=== PATIENT | female | born 1965 | race African-American/Black ===

== ENCOUNTER 2018-01-06 17:07 | Emergency (ER) | payer SELFPAY ==
[~2018-01-06] VITALS: Ht 157.5 cm; Wt 73.0 kg
[2018-01-06 17:11] VITALS: BP 137/76
== END 2018-01-07 01:00 | disposition left against medical advice (07) ==
LOC: ER 17:25
DX: Z53.21 Procedure and treatment not carried out due to patient leaving prior to being seen by health care provider (principal)

== ENCOUNTER 2018-11-01 14:25 | Inpatient (IN) | payer MEDICAID ==
[~2018-11-01] VITALS: Ht 147.3 cm; Wt 84.8 kg
[2018-11-01] MEDS ORDERED: SODIUM CHLORIDE 0.9% 1000ML BAG (SEPSIS BOLUS) IV ONE (14:45)
[2018-11-01] MEDS ORDERED: ONDANSETRON HCL 4MG/2ML INJ IV ONE (15:00)
[2018-11-01] MEDS ORDERED: MORPHINE SULFATE 4 MG/ML CPJ (NOT FOR IM USE) IV ONE (15:00)
[2018-11-01 15:29] LABS: BASOPHILS % 0.6 % (0.0-2.0); EOSINOPHILS % 0.9 % (0.0-5.0); HEMATOCRIT. 45.8 % (36.0-48.0); HEMOGLOBIN. 15.1 g/dL (12.0-16.0); MEAN CORPUSCULAR HEMOGLOBIN 27.6 pg (28.0-32.0); MEAN CORPUSCULAR VOLUME 83.7 fL (81.0-99.0); MEAN PLATELET VOLUME 10.6 fl (7.4-10.4); MONOCYTES % 5.8 % (2.0-8.0); NEUTROPHILS % 67.7 % (40.0-76.0); PLATELET 234 x1000/uL (130-400); RED BLOOD CELL COUNT 5.47 mill/uL (4.2-5.4); RED CELL DISTRIBUTION WIDTH 15.7 % (11.6-14.6)
[2018-11-01 15:31] LABS: INR 1.1; PROTHROMBIN TIME 11.1 sec (9.6-11.0)
[2018-11-01 15:32] LABS: CHLORIDE 89 mEq/L (98-107)
[2018-11-01 16:55] LABS: CLARITY URINE CLEAR (CLEAR); COLOR URINE YELLOW (YELLOW); KETONES URINE 4+ (NEGATIVE); LEUKOCYTE ESTERASE URINE NEGATIVE (NEGATIVE); NITRITE URINE NEGATIVE (NEGATIVE); OCCULT BLOOD URINE NEGATIVE (NEGATIVE); PROTEIN URINE NEGATIVE (NEGATIVE); SPECIFIC GRAVITY URINE 1.034 (1.005-1.030)
[2018-11-01] MEDS ORDERED: ACETAMINOPHEN 325MG TABLET PO PRN (19:45)
[2018-11-01] MEDS ORDERED: HYDROCODONE/ACETAMINOPHEN 5/325MG TABLET PO PRN (19:45)
[2018-11-01] MEDS ORDERED: ZOLPIDEM TARTRATE 5MG TABLET PO PRN (19:45)
[2018-11-01] MEDS ORDERED: CLONIDINE 0.1MG TABLET PO PRN (19:45)
[2018-11-01] MEDS ORDERED: MORPHINE SULFATE 4 MG/ML CPJ (NOT FOR IM USE) IV PRN (19:45)
[2018-11-01] MEDS ORDERED: LABETALOL 5MG/ML SYR 20 MG/4 ML SYRINGE IV NR (19:45)
[2018-11-01] MEDS ORDERED: DEXTROSE 50% WATER 50ML SYRINGE IV PRN (20:00)
[2018-11-01] MEDS ORDERED: HYDRALAZINE 20MG/ML VIAL IV NR (20:00)
[2018-11-01] MEDS: SODIUM CHLORIDE 0.9% 1,000 ML IV SCH (20:00)
[2018-11-01] MEDS ORDERED: METOPROLOL TARTRATE 50MG TABLET PO SCH (21:00)
[2018-11-01] MEDS ORDERED: AMLODIPINE 5MG TABLET PO SCH (21:00)
[2018-11-01] MEDS: INSULIN LISPRO 100 UNITS/ML SUBCUT SCH (21:00)
[2018-11-01 21:21] LABS: *BENZODIAZEPINES SCREEN URINE NEGATIVE (NEGATIVE)
[2018-11-01 21:22] LABS: *AMPHETAMINES SCREEN URINE NEGATIVE (NEGATIVE); *COCAINE SCREEN URINE NEGATIVE (NEGATIVE); CANNABINOID URINE SCREEN PRESUMTIVE POSITIVE (NEGATIVE); METHADONE URINE SCREEN NEGATIVE (NEGATIVE); OPIATES URINE SCREEN PRESUMTIVE POSITIVE (NEGATIVE); PHENCYCLIDINE URINE SCREEN NEGATIVE (NEGATIVE)
[2018-11-01 21:23] LABS: *BARBITURATES SCREEN URINE NEGATIVE (NEGATIVE)
[2018-11-01] MEDS: INSULIN GLARGINE UD 100 UNITS/ML SYR SUBCUT SCH (22:12)
[2018-11-01 23:00] VITALS: BP 161/111
[2018-11-01] MEDS: ONDANSETRON HCL 4MG/2ML INJ IV PRN (23:56)
[2018-11-02] VITALS (7 sets, daily range): BP systolic 94–187; BP diastolic 53–114
[2018-11-02] MEDS: HYDRALAZINE 20MG/ML VIAL IV PRN ×2 (00:03→05:51)
[2018-11-02] MEDS: SODIUM CHLORIDE 0.9% 1,000 ML IV SCH ×2 (00:17→18:07)
[2018-11-02] MEDS: ONDANSETRON HCL 4MG/2ML INJ IV PRN (05:51)
[2018-11-02 06:06] LABS: BASOPHILS % 0.8 % (0.0-2.0); HEMATOCRIT. 42.5 % (36.0-48.0); HEMOGLOBIN. 13.9 g/dL (12.0-16.0); LYMPHOCYTES % 14.4 % (20.0-50.0); MEAN CORPUSCULAR HEMOGLOBIN 27.7 pg (28.0-32.0); MEAN CORPUSCULAR VOLUME 84.5 fL (81.0-99.0); MEAN PLATELET VOLUME 10.5 fl (7.4-10.4); MONOCYTES % 3.3 % (2.0-8.0); NEUTROPHILS % 81.5 % (40.0-76.0); PLATELET 201 x1000/uL (130-400); RED BLOOD CELL COUNT 5.02 mill/uL (4.2-5.4); RED CELL DISTRIBUTION WIDTH 15.6 % (11.6-14.6)
[2018-11-02 06:46] LABS: CHLORIDE 103 mEq/L (98-107)
[2018-11-02] MEDS: INSULIN LISPRO 100 UNITS/ML SUBCUT SCH ×6 (07:15→22:21)
[2018-11-02] MEDS: BLOOD SUGAR DIAGNOSTIC STRIP TEST SCH ×4 (07:32→21:00)
[2018-11-02] MEDS: METOCLOPRAMIDE HCL 10MG/2ML VIAL IV SCH ×2 (12:22→18:03)
[2018-11-02] MEDS: NICOTINE 14MG PATCH TD SCH (12:24)
[2018-11-02] MEDS: INSULIN GLARGINE UD 100 UNITS/ML SYR SUBCUT SCH (12:26)
[2018-11-02] MEDS: CLONIDINE 0.2MG TABLET PO SCH ×2 (13:38→22:00)
[2018-11-02] MEDS: HYDRALAZINE HCL 100MG TABLET PO SCH ×2 (13:39→22:00)
[2018-11-02] MEDS: DILTIAZEM HCL 90MG TABLET PO SCH ×2 (13:40→22:00)
[2018-11-02] MEDS ORDERED: CLONIDINE 0.1MG TABLET PO SCH (14:00)
[2018-11-02] MEDS ORDERED: DIATR MEGLU/DIATRIZOATE SOLN 30ML PO SCH (15:15)
[2018-11-02] MEDS: PANTOPRAZOLE SODIUM 40 MG/VIAL IV SCH (18:02)
[2018-11-02] MEDS: CARVEDILOL 25MG TABLET PO SCH (21:00)
[2018-11-03] VITALS: BP 92/62
[2018-11-03] MEDS: METOCLOPRAMIDE HCL 10MG/2ML VIAL IV SCH ×3 (00:11→12:00)
[2018-11-03] MEDS: INSULIN GLARGINE UD 100 UNITS/ML SYR SUBCUT SCH ×2 (00:12→10:51)
[2018-11-03 04:00] VITALS: BP 93/60
[2018-11-03] MEDS: HYDRALAZINE HCL 100MG TABLET PO SCH (06:00)
[2018-11-03] MEDS: CLONIDINE 0.2MG TABLET PO SCH (06:00)
[2018-11-03] MEDS: DILTIAZEM HCL 90MG TABLET PO SCH (06:00)
[2018-11-03] MEDS: BLOOD SUGAR DIAGNOSTIC STRIP TEST SCH ×2 (06:57→11:45)
[2018-11-03] MEDS: INSULIN LISPRO 100 UNITS/ML SUBCUT SCH ×4 (06:58→12:15)
[2018-11-03 07:20] LABS: BASOPHILS % 0.2 % (0.0-2.0); EOSINOPHILS % 1.4 % (0.0-5.0); HEMATOCRIT. 36.6 % (36.0-48.0); HEMOGLOBIN. 11.7 g/dL (12.0-16.0); MEAN CORPUSCULAR HEMOGLOBIN 26.9 pg (28.0-32.0); MEAN CORPUSCULAR VOLUME 83.9 fL (81.0-99.0); MEAN PLATELET VOLUME 10.7 fl (7.4-10.4); MONOCYTES % 4.3 % (2.0-8.0); NEUTROPHILS % 56.1 % (40.0-76.0); PLATELET 158 x1000/uL (130-400); RED BLOOD CELL COUNT 4.36 mill/uL (4.2-5.4); RED CELL DISTRIBUTION WIDTH 15.5 % (11.6-14.6)
[2018-11-03 07:52] LABS: CHLORIDE 106 mEq/L (98-107)
[2018-11-03 08:00] VITALS: BP 102/63
[2018-11-03] MEDS: CARVEDILOL 25MG TABLET PO SCH (09:00)
[2018-11-03] MEDS: PANTOPRAZOLE SODIUM 40 MG/VIAL IV SCH (09:50)
[2018-11-03] MEDS: NICOTINE 14MG PATCH TD SCH (09:50)
[2018-11-03] MEDS ORDERED: LIDOCAINE HCL 1% 20ML VIAL (Pyxis) INJ ONE (11:01)
[2018-11-03] MEDS ORDERED: DIATR MEGLU/DIATRIZOATE SOLN 30ML PO NR (12:45)
[2018-11-03] MEDS ORDERED: CLONIDINE 0.1MG TABLET PO SCH (17:00)
== END 2018-11-03 13:20 | disposition left against medical advice (07) | DRG 282 ==
LOC: ER 14:25 → 5WST 19:31 → EDBEDREQTM 19:32 → EDBEDREQ 19:32 → EDBEDREQSVC 19:32 → ENRESERV 21:20 → 5WST 11-02 05:22
PROVIDERS: ADMIT Internal Medicine; ATTEND Internal Medicine
PROC: 02HV33Z Insertion of Infusion Device into Superior Vena Cava, Percutaneous Approach (ICD-10-PCS; principal; 2018-11-03)
PROC: B518ZZA Fluoroscopy of Superior Vena Cava, Guidance (ICD-10-PCS; 2018-11-03)
DX: K85.90 Acute pancreatitis without necrosis or infection, unspecified (principal); E11.65 Type 2 diabetes mellitus with hyperglycemia; K86.2 Cyst of pancreas; I16.0 Hypertensive urgency; F17.210 Nicotine dependence, cigarettes, uncomplicated; I10 Essential (primary) hypertension; J44.9 Chronic obstructive pulmonary disease, unspecified; E66.9 Obesity, unspecified; Z71.6 Tobacco abuse counseling; Z90.49 Acquired absence of other specified parts of digestive tract
CPT/HCPCS: 36415; 36569; 36573; 74176; 80048; 80061; 80305; 82962; 83036; 83605; 84145; 84443; 84484; 86301; 93005; 93306; 93970; 99291; C1725; C1893; C9113; J0360; J1815; J2270; J2405; J2765; J3490; J7030; J7050

== ENCOUNTER 2019-08-02 18:38 | Emergency (ER) | payer MEDICAID ==
[~2019-08-02] VITALS: Ht 162.6 cm; Wt 84.0 kg
[2019-08-02] MEDS ORDERED: ONDANSETRON HCL 4MG/2ML INJ IV STA (20:31)
[2019-08-02 20:50] LABS: BASOPHILS % 0.4 % (0.0-2.0); HEMATOCRIT. 41.2 % (36.0-48.0); HEMOGLOBIN. 13.7 g/dL (12.0-16.0); LYMPHOCYTES % 21.1 % (20.0-50.0); MEAN CORPUSCULAR HEMOGLOBIN 26.5 pg (28.0-32.0); MEAN CORPUSCULAR VOLUME 79.5 fL (81.0-99.0); MEAN PLATELET VOLUME 8.5 fl (7.4-10.4); MONOCYTES % 3.9 % (2.0-8.0); NEUTROPHILS % 74.6 % (40.0-76.0); PLATELET 245 x1000/uL (130-400); RED BLOOD CELL COUNT 5.18 mill/uL (4.2-5.4); RED CELL DISTRIBUTION WIDTH 17.6 % (11.6-14.6)
[2019-08-02 20:57] LABS: CHLORIDE 103 mEq/L (98-107)
[2019-08-02] MEDS ORDERED: SODIUM CHLORIDE 0.9% 1,000 ML IV ONE (21:45)
[2019-08-03 01:23] LABS: CLARITY URINE CLEAR (CLEAR); COLOR URINE YELLOW (YELLOW); KETONES URINE 3+ (NEGATIVE); LEUKOCYTE ESTERASE URINE NEGATIVE (NEGATIVE); NITRITE URINE NEGATIVE (NEGATIVE); OCCULT BLOOD URINE NEGATIVE (NEGATIVE); PH URINE 6.5 (4.5-8.0); PROTEIN URINE 1+ (NEGATIVE); SPECIFIC GRAVITY URINE 1.023 (1.005-1.030)
[2019-08-03 03:00] VITALS: BP 166/96
== END 2019-08-03 03:30 | disposition home or self-care (01) ==
LOC: ER 18:38
DX: R11.2 Nausea with vomiting, unspecified (principal); J45.909 Unspecified asthma, uncomplicated; E11.9 Type 2 diabetes mellitus without complications; I10 Essential (primary) hypertension; Z88.6 Allergy status to analgesic agent
CPT/HCPCS: 36415; 71045; 80053; 81003; 83690; 83880; 84484; 85025; 93005; 96361; 96374; 99284; J2405; J7030

== ENCOUNTER 2020-11-15 04:03 | Emergency (ER) | payer MEDICAID, OTHER ==
[~2020-11-15] VITALS: Ht 165.1 cm; Wt 73.0 kg
[2020-11-15] MEDS ORDERED: DEXAMETHASONE 10 MG/ML VIAL IV ONE (04:45)
[2020-11-15] MEDS ORDERED: DIPHENHYDRAMINE 50MG/ML VIAL IV ONE (04:45)
[2020-11-15] MEDS ORDERED: FAMOTIDINE 20MG/2ML VIAL IV ONE (04:45)
[2020-11-15 05:22] LABS: BASOPHILS % 0.6 % (0.0-2.0); EOSINOPHILS % 1.5 % (0.0-5.0); HEMATOCRIT. 47.8 % (36.0-48.0); HEMOGLOBIN. 15.5 g/dL (12.0-16.0); MEAN CORPUSCULAR HEMOGLOBIN 25.2 pg (28.0-32.0); MEAN CORPUSCULAR VOLUME 77.5 fL (81.0-99.0); MEAN PLATELET VOLUME 7.4 fl (7.4-10.4); MONOCYTES % 4.7 % (2.0-8.0); NEUTROPHILS % 49.2 % (40.0-76.0); PLATELET 372 x1000/uL (130-400); RED BLOOD CELL COUNT 6.17 mill/uL (4.2-5.4); RED CELL DISTRIBUTION WIDTH 16.7 % (11.6-14.6)
[2020-11-15] MEDS ORDERED: EPIN0.3P3 IM (05:42)
[2020-11-15 05:43] LABS: CHLORIDE 104 mEq/L (98-107)
[2020-11-15 05:45] VITALS: BP 136/87
== END 2020-11-15 05:50 | disposition home or self-care (01) ==
LOC: ER 04:03
DX: L27.0 Generalized skin eruption due to drugs and medicaments taken internally (principal); E11.9 Type 2 diabetes mellitus without complications; I10 Essential (primary) hypertension; J45.909 Unspecified asthma, uncomplicated; F99 Mental disorder, not otherwise specified; Z88.6 Allergy status to analgesic agent; T39.315A Adverse effect of propionic acid derivatives, initial encounter; Y92.018 Other place in single-family (private) house as the place of occurrence of the external cause
CPT/HCPCS: 36415; 71045; 80053; 85025; 93005; 96374; 96375; 99285; J1100; J1200; J3490

== ENCOUNTER 2021-12-08 10:33 | Emergency (ER) | payer MEDICAID, OTHER ==
[~2021-12-08] VITALS: Ht 147.3 cm; Wt 85.0 kg
[~2021-12-08 10:33] MED LIST: EPIN0.3P3 IM
[2021-12-08 10:42] VITALS: BP 140/98
[2021-12-08] MEDS ORDERED: ACETAMINOPHEN 325MG TABLET PO ONE (10:45)
[2021-12-08] MEDS ORDERED: SALI14GE TP (12:13)
== END 2021-12-08 12:33 | disposition home or self-care (01) ==
LOC: ER 10:33
DX: B07.0 Plantar wart (principal); J45.909 Unspecified asthma, uncomplicated; E11.9 Type 2 diabetes mellitus without complications; I10 Essential (primary) hypertension; Z88.4 Allergy status to anesthetic agent
CPT/HCPCS: 73630; 99283

== ENCOUNTER 2023-07-25 02:04 | Emergency (ER) | payer MEDICAID, OTHER ==
[~2023-07-25] VITALS: Ht 167.6 cm; Wt 75.0 kg
[~2023-07-25 02:04] MED LIST changes: +SALI14GE TP
[2023-07-25 02:07] VITALS: O2SAT 98
[2023-07-25] MEDS: DIPHENHYDRAMINE 50MG/ML VIAL IV ONE (02:32)
[2023-07-25] MEDS: METHYLPREDNISOLONE SOD SUCC 125MG/2ML (ACT-O-VIAL) IV ONE (02:32)
[2023-07-25] MEDS: FAMOTIDINE 20MG/2ML VIAL IV ONE (02:33)
[2023-07-25] MEDS: EPINEPHRINE 1:1000 1 MG/ML AMP SUBCUT ONE (02:34)
[2023-07-25] MEDS: SODIUM CHLORIDE 0.9% 1,000 ML IV ONE (02:35)
[2023-07-25 03:02] LABS: BASOPHILS % 0.5 % (0.0-2.0); DIFFERENTIAL COMMENT 0; EOSINOPHILS % 1.7 % (0.0-5.0); HEMATOCRIT. 42.8 % (36.0-48.0); HEMOGLOBIN. 13.8 g/dL (12.0-16.0); LYMPHOCYTES % 51.7 % (20.0-50.0); MEAN CORPUSCULAR HGB CONC 32.2 g/dL (31.0-37.0); MEAN CORPUSCULAR VOLUME 77.5 fL (81.0-99.0); MEAN PLATELET VOLUME 8.4 fl (7.4-10.4); MONOCYTES % 3.5 % (2.0-8.0); NEUTROPHILS % 42.6 % (40.0-76.0); PLATELET 257 x1000/uL (130-400); RED BLOOD CELL COUNT 5.51 mill/uL (4.2-5.4); WHITE BLOOD COUNT 7.9 x1000/uL (4.5-11.0)
[2023-07-25 03:18] LABS: ALANINE AMINOTRANSFERASE 23 IU/L (10-49); ALBUMIN 3.5 g/dL (3.2-4.8); ASPARTATE AMINOTRANSFERASE 25 IU/L (<34); BILIRUBIN TOTAL 0.5 mg/dL (0.1-1.0); CALCIUM 8.6 mg/dL (8.7-10.4); CARBON DIOXIDE 24 mEq/L (21-32); CHLORIDE 104 mEq/L (98-107); CREATININE 0.7 mg/dL (0.6-1.0); GLUCOSE 175 mg/dL (70-105); POTASSIUM 3.7 mEq/L (3.5-5.1); PROTEIN TOTAL 6.9 g/dL (6.0-8.3); SODIUM 135 mEq/L (136-145); UREA NITROGEN BLOOD 12 mg/dL (9-23)
[2023-07-25] MEDS ORDERED: CLONIDINE 0.1MG TABLET PO PRN (07:45)
[2023-07-25] MEDS ORDERED: DEXTROSE 50% WATER 50ML SYRINGE IV PRN (07:45)
[2023-07-25] MEDS ORDERED: ZOLPIDEM TARTRATE 5MG TABLET PO PRN (07:45)
[2023-07-25] MEDS ORDERED: MAGNESIUM/ALUMINUM HYDROXIDE/SIMETHICONE 30ML UDC PO PRN (07:45)
[2023-07-25] MEDS ORDERED: IPRATROPIUM/ALBUTEROL 0.5-3(2.5)MG/3ML NEB HHN PRN (07:45)
[2023-07-25] MEDS ORDERED: DIPHENHYDRAMINE 50MG/ML VIAL IV PRN (07:45)
[2023-07-25] MEDS ORDERED: ACETAMINOPHEN 325MG TABLET PO PRN ×2 (07:45)
[2023-07-25] MEDS ORDERED: HYDRALAZINE 20MG/ML VIAL IV PRN (07:45)
[2023-07-25] MEDS ORDERED: HALOPERIDOL 5MG TABLET PO PRN (07:45)
[2023-07-25] MEDS ORDERED: ONDANSETRON HCL 4MG/2ML INJ IV PRN (07:45)
[2023-07-25] MEDS ORDERED: BENAZEPRIL 10MG TABLET PO SCH (09:00)
[2023-07-25] MEDS: BLOOD SUGAR DIAGNOSTIC STRIP TEST SCH (09:09)
[2023-07-25] MEDS: INSULIN LISPRO 100 UNITS/ML SUBCUT SCH (09:13)
[2023-07-25] MEDS: LISINOPRIL 10MG TABLET PO NR (09:13)
[2023-07-25] MEDS: FAMOTIDINE 20MG/2ML VIAL IV SCH (09:15)
[2023-07-25] MEDS: INSULIN GLARGINE 100 UNITS/ML SUBCUT SCH (10:18)
[2023-07-25] MEDS: METHYLPREDNISOLONE SOD SUCC 40MG/ML (ACT-O-VIAL) IV SCH (14:14)
[2023-07-25] MEDS: SODIUM CHLORIDE 0.9% INJ 3ML FLUSH IVF SCH (14:14)
[2023-07-25 14:46] VITALS: BP 140/85; PULSE 86; RESP 14; TEMP 98.3
[2023-07-25] MEDS ORDERED: DOXEPIN HCL 25MG CAPSULE PO SCH (21:00)
[2023-07-26] MEDS ORDERED: LISINOPRIL 20MG TABLET PO SCH (09:00)
== END 2023-07-25 14:51 | disposition home or self-care (01) ==
LOC: ER 02:04 → EDBEDREQ 05:17 → EDBEDREQTM 05:17 → CANBEDREQ 14:15 → ER 14:51
DX: T78.2XXA Anaphylactic shock, unspecified, initial encounter (principal); J98.8 Other specified respiratory disorders; I10 Essential (primary) hypertension; E11.9 Type 2 diabetes mellitus without complications; J45.909 Unspecified asthma, uncomplicated; Z90.49 Acquired absence of other specified parts of digestive tract; Z88.6 Allergy status to analgesic agent; Z98.890 Other specified postprocedural states
CPT/HCPCS: 36415; 71045; 80053; 82962; 83036; 85025; 93005; 96361; 96372; 96374; 96375; 96376; 99291; J1200; J1815; J2920; J2930; J3490; J7030

== ENCOUNTER 2024-09-24 08:00 | Emergency (ER) | payer MEDICAID, OTHER ==
[~2024-09-24] VITALS: Ht 170.2 cm; Wt 80.0 kg
[2024-09-24 08:02] VITALS: TEMP 36.6; O2SAT 98
[2024-09-24 08:20] VITALS: O2SAT 98
[2024-09-24] MEDS: SODIUM CHLORIDE 0.9% 1,000 ML IV ONE ×2 (08:50→10:23)
[2024-09-24 09:15] VITALS: BP 106/69; PULSE 108; RESP 18; TEMP 97.9
[2024-09-24 09:19] LABS: BASOPHILS % 0.8 % (0.0-2.0); DIFFERENTIAL COMMENT 0; EOSINOPHILS % 1.1 % (0.0-5.0); HEMATOCRIT. 38.7 % (36.0-48.0); LYMPHOCYTES % 34.5 % (20.0-50.0); MEAN CORPUSCULAR HEMOGLOBIN 24.2 pg (28.0-32.0); MEAN CORPUSCULAR HGB CONC 31.1 g/dL (31.0-37.0); MEAN CORPUSCULAR VOLUME 77.6 fL (81.0-99.0); MEAN PLATELET VOLUME 8.4 fl (7.4-10.4); MONOCYTES % 5.7 % (2.0-8.0); NEUTROPHILS % 57.9 % (40.0-76.0); PLATELET 264 x1000/uL (130-400); RED BLOOD CELL COUNT 4.98 mill/uL (4.2-5.4); RED CELL DISTRIBUTION WIDTH 17.6 % (11.6-14.6); WHITE BLOOD COUNT 6.5 x1000/uL (4.5-11.0)
[2024-09-24 09:41] LABS: CHLORIDE 104 mEq/L (98-107); POTASSIUM 4.2 mEq/L (3.5-5.1); SODIUM 136 mEq/L (136-145)
[2024-09-24 09:42] LABS: CALCIUM 8.8 mg/dL (8.7-10.4); CARBON DIOXIDE 17 mEq/L (21-32)
[2024-09-24 09:47] LABS: CREATININE 0.7 mg/dL (0.6-1.0); ETHANOL BLOOD 285 mg/dL (<10); UREA NITROGEN BLOOD 7 mg/dL (9-23)
[2024-09-24 09:48] LABS: TROPONIN I HIGH SENSITIVITY 4 ng/L (3.0-34)
[2024-09-24 09:49] LABS: BETA HYDROXYBUTYRATE 0.4 mMol/L (0.0-0.3)
[2024-09-24] MEDS ORDERED: DEXT 5%/0.9% NACL 1,000 ML IV SCH (10:00)
[2024-09-24] MEDS ORDERED: DEXTROSE 50% WATER 50ML SYRINGE IV PRN (10:00)
[2024-09-24] MEDS ORDERED: INSULIN REGULAR (DRIP) 100 UNITS in SODIUM CHLORIDE 0.9% 99 ML IV SCH (10:00)
[2024-09-24] MEDS ORDERED: BLOOD SUGAR DIAGNOSTIC STRIP TEST PRN (10:00)
[2024-09-24] MEDS ORDERED: BLOOD SUGAR DIAGNOSTIC STRIP TEST SCH (10:00)
[2024-09-24] MEDS ORDERED: SODIUM PHOSPHATE 15 MMOL in SODIUM CHLORIDE 0.9% 245 ML IV PRN (10:00)
[2024-09-24] MEDS ORDERED: KCL 20MEQ/100ML PREMIX 100 ML IV PRN (10:00)
[2024-09-24] MEDS ORDERED: MAGNESIUM 2 G PREMIX 50 ML IV PRN (10:00)
[2024-09-24] MEDS ORDERED: POTASSIUM CHLORIDE 40 MEQ in SODIUM CHLORIDE 0.9% 230 ML IV PRN (10:00)
[2024-09-24] MEDS ORDERED: SODIUM CHLORIDE 0.9% 1,000 ML IV SCH (10:00)
[2024-09-24 10:02] LABS: GLUCOSE 413 mg/dL (70-105)
[2024-09-24] MEDS ORDERED: LORAZEPAM 2MG/ML INJ IV PRN (10:15)
[2024-09-24] MEDS ORDERED: GUAIFENESIN 200MG/10ML SUGAR FREE UDC PO PRN (10:45)
[2024-09-24] MEDS ORDERED: IPRATROPIUM/ALBUTEROL 0.5-3(2.5)MG/3ML NEB HHN PRN (10:45)
[2024-09-24] MEDS ORDERED: MAGNESIUM/ALUMINUM HYDROXIDE/SIMETHICONE 30ML UDC PO PRN (10:45)
[2024-09-24] MEDS ORDERED: CLONIDINE 0.1MG TABLET PO PRN (10:45)
[2024-09-24] MEDS ORDERED: DOCUSATE SODIUM 100MG CAPSULE PO PRN (10:45)
[2024-09-24] MEDS ORDERED: ONDANSETRON HCL 4MG/2ML INJ IV PRN (10:45)
[2024-09-24] MEDS ORDERED: ACETAMINOPHEN 325MG TABLET PO PRN ×2 (10:45)
[2024-09-24 10:54] LABS: CHLORIDE 106 mEq/L (98-107); POTASSIUM 4.1 mEq/L (3.5-5.1); SODIUM 137 mEq/L (136-145)
[2024-09-24 10:55] LABS: CARBON DIOXIDE 18 mEq/L (21-32)
[2024-09-24 11:02] LABS: PHOSPHORUS 4.2 mg/dL (2.5-4.9)
[2024-09-24 11:51] LABS: LACTIC ACID 5.6 mmol/L (0.4-2.0)
[2024-09-24] MEDS ORDERED: ENOXAPARIN 40MG/0.4ML SYR SUBCUT SCH (12:00)
== END 2024-09-24 10:50 | disposition left against medical advice (07) ==
LOC: ER 08:00 → EDBEDREQSVC 10:17 → EDBEDREQTM 10:17 → EDBEDREQ 10:17 → ER 10:50 → CANBEDREQ 10:52
DX: E11.10 Type 2 diabetes mellitus with ketoacidosis without coma (principal); R07.9 Chest pain, unspecified; Z88.6 Allergy status to analgesic agent
CPT/HCPCS: 80051; 80048; 82010; 80320; 82962; 83036; 83605; 83690; 83735; 83930; 84100; 85025; 84484; 36415; 93005; 96360; 96361; 99284; J7042; J7030; Z7610; A4606; G0480